=== PATIENT | male | born 1965 | race Caucasian/White ===

== ENCOUNTER 2017-06-04 14:07 | Inpatient (IN) | payer MEDICARE, MEDICAID ==
--- NOTE | 2017-06-04 14:28 | ED Physician Chart ---
Chief Complaint/HPI - Patient Information Date Seen:: 06/04/17 Time Seen:: 14:23 Chief Complaint:: cardiac arrest History of Present Illness:: pt was at dialysis center getting his tx and was noted unresponsive by staff. ems called and found pt in asystole. they started acls protocols and found asystole. he did briefly get pulses back in route at times but arrives in ed asystole. minimal hx available. no known recent troubles prior to arrest. no known recent illness or pain. no family present as of now for further hx. on arrival acls protocols continued and pt received multiple doses of epi and was intubated by myself ...he did return w spontaneous pulses. 2;50pm dw who has now arrived. according to her he was not having and fever or recent illness. no complaints recentyl but he did have pain at l side last nt. he does not complain much in general according to her. 4;50p adds info that pt has recently had skin graft of rt heel ulcer and was believed to be infected so started abx for this 2 days ago. Historian:: EMS Review of Systems - Review of Systems General/Constitutional: Other (pt unresponsive/unobtainable) Past Medical History - Past Medical History Past Medical History: HTN, DM (neuropathy/rf), Dyslipidemia, ESRD (on dialysis) Surgical History: other (dialysis shunt l arm) Medication: Reviewed Family Medical History - Family Member Mother History Unknown: Yes Physical Exam - Physical Examination Other Gen/Cons comments:: unresponsive obese male arrives pulseless w no respiratory effort (is being bag valve mask resp support and chest progressions in progress. color ok. no leg edema no rxn to painfull stimuli. no spontaneous mvts Head: Atraumatic Eyes: Lids, conjuctiva normal, PERRL, EOMI Other Eyes comments:: pinpoint pupils Skin: Nl inspection, No rash, No skin lesions, No ecchymosis, Well hydrated, No lymphadenopathy ENMT: External ears, nose nl, Nasal exam nl, Lips, teeth, gums nl Neck: Nontender, Full ROM w/o pain, No JVD, No nuchal rigidity, No bruit, No mass, No stridor Respiratory: Clear to Auscultation, No Wheeze/Rhonchi/Rales Cardio Vascular: RRR, No murmur, gallop, rubs, NL S1 S2 GI: No tenderness/rebounding/guarding, No organomegaly, No hernia, Normal BS's, Nondistended, No mass/bruits, No McBurney tenderness : No CVA tenderness Extremities: No tenderness or effusion, Full ROM, normal strength in all extremities, No edema, Normal digits & nails Other Extremities comments:: dialysis access shunt left internal bicep..no obv hematoma or infection rt heel has a 1 inch ulcer deep w malodorous but no discharge nor surrounding redness. Other Neuro/Psych comments:: pt unresponsive. nonverbal no rxn to painfull stimuli. no spontaneous mvts Misc: normal gait, Normal back, No paraspinal tenderness Other:: no sign of trauma. Labs/Radiology/EKG Results - Lab Results Results: Laboratory Tests 06/04/17 06/04/17 06/04/17 16:37 16:37 16:37 WBC 18.7 H RBC 3.58 L Hgb 11.7 L Hct 35.2 L MCV 98.2 MCH 32.7 H MCHC Differential 33.2 RDW 14.1 Plt Count 168 MPV 7.4 PT INR PTT (Actin FS) Sodium 130 L Potassium 6.8 H* Chloride 100 Carbon Dioxide 21.6 Anion Gap 15.2 BUN 54 H Creatinine 9.5 H* Est GFR ( Amer) 7.5 Est GFR (Non-Af Amer) 6.2 BUN/Creatinine Ratio 5.7 Glucose 271 H POC Glucose Whole Bld Lactic Acid 2.05 H* Calcium 8.0 L Total Bilirubin 0.8 AST 351 H ALT 321 H Alkaline Phosphatase 104 Troponin I B-Natriuretic Peptide Total Protein 7.6 Albumin 3.7 L Globulin 3.9 Albumin/Globulin Ratio 1.0 06/04/17 06/04/17 06/04/17 16:37 16:37 16:46 WBC RBC Hgb Hct MCV MCH MCHC Differential RDW Plt Count MPV PT 13.7 H INR 1.30 PTT (Actin FS) 45.0 H Sodium Potassium Chloride Carbon Dioxide Anion Gap BUN Creatinine Est GFR ( Amer) Est GFR (Non-Af Amer) BUN/Creatinine Ratio Glucose POC Glucose 230 H Whole Bld Lactic Acid Calcium Total Bilirubin AST ALT Alkaline Phosphatase Troponin I 0.18 H* B-Natriuretic Peptide 183.0 H Total Protein Albumin Globulin Albumin/Globulin Ratio - Radiology Results Results: cxr nad, ett ok 1 cm above cong cxr (no 2) ett ok. rt scl line in place in svc ok per rad prob chf ( appears mild if any to me) - EKG Interpretations EKG Time:: 15:15 Rate & Rhythm: nsr 83 [place]: 14 Intervals: minor st depression v3-6 Assessment - Assessment Critical Care Time: 120 Excludes all billable procedures: Yes This condition life threatening/high prob of deterioration: Yes Assessment/Comments:: PROCEDURE ACLS protocol for cardiac arrest pt arrived in asystole. acls protocols enacting. epi 1mg iv 2x. h2co3 iv x1. iv fluid infusing. PROCEDURE : INTUBATION pt intubated by me...1st attempt was w 7.0 ett and mac 4 blade but was unable to place tube due to large tongue and muscle tone in jaw. suctioned pt....no aspirate seens . bag valve cont and 2nd attempt at intubation minutes later w glidescope was successful w good color change and good bilat bs and no bs over abd, cxr ordred. (pt had regained pulses by this time from medical intervention ) no defibrilation. pt has sinus tach on monitor and tolerating intubation at this time. we have not seen any spontaneous movements - Procedures Procedures:: procedure RT scl line plan was for Dr Allen to do this procedure but pt became unstable w bp drop to 80s systolic. betadyne prep. streile drapes and procedures/gowns/gloves/mask etc. lido 1pct 3 ml local. sev attempts to get scl line on left. got flash but unable to pass wire. calls to Dr Allen placed simultaneously to alert him to change in condition. Dr Allen arrived and was able to get sclline placed. ports flushed. cxr after confirmed line in place correct w tip in svc. ED Septic Shock - . Is Septic Shock (SBP<90, OR Lactate>4 mmol\L) present?: No - <6hrs of presentation: Assessment of Lungs: Lung CTA bilateral Assessment of Heart: RRR EKG Interpretation: NSR, ST depression Capillary refill evaluation: Other (cool in hands feet) Skin Exam: Diaphoretic Comment: pt could be septic...it is currently unclear but possible. suspect this will become clear in time. am covering w abx because of rt foot ulcer and overall condition. - Time of Reassessment Time of Reassessment: 17:09 Reassessment (Disposition) - Reassessment Reassessment:: giving abx for heel ulver...using levaquin bc pt is a DM pt and smell and etc suspicious for pseudomonas. known renal pt but first dose levaquin at reg str should be ok...subsequent doses may need reduced dose but need to get tx started bc of pt extremis recently dont want delay. called Dr Piedra 3x over 1;15 min no answer...call to Dr Latham at 602p -dw Dr Diaz says admit to icu to Dr Piedra and he willcontact Dr Downing so he gives orders soon. consults to Maria Del Rosario Agee (cardiac) , Roge (Renal )and Dr Gonzales (neuro) .... Reassessment Condition:: Improved - Diagnosis Diagnosis:: 1 cardiac arrest / asystole 2 s/p acls resuscitation 3 renal failure - dialysis pt 4 infected ulcer right heel 5 r/o sepsis - Patient Disposition Condition at Disposition:: Critical
--- NOTE | 2017-06-04 14:55 | Diagnostic Imaging Report ---
CHEST X-RAY: AP view INDICATION: Intubation COMPARISON: None FINDINGS: ET tube is seen with tip 1.8 cm above the [place]. Minimal congestive changes are seen with suboptimal lung bones. No focal consolidation or effusions. Cardiomegaly is noted. The osseous structures are intact. IMPRESSION: ET tube with tip 1.8 cm above the [place]. Minimal congestive changes with no focal consolidation identified Cardiomegaly.
[2017-06-04] MEDS ORDERED: Sodium Chloride 0.9% 500 ML IV ONE (16:30)
[2017-06-04 16:49] LABS: HEMATOCRIT 35.2 % (39.0-49.0); HEMOGLOBIN 11.7 gm/dL (13.2-17.3); MEAN CELL VOLUME 98.2 fl (80-99); MEAN CORPUSCULAR HEMOGLOBIN 32.7 pg (26.0-30.0); MEAN CORPUSCULAR HGB CONC 33.2 pg (28.0-36.0); MEAN PLATELET VOLUME 7.4 fl; PLATELET COUNT 168 Th/cmm (150-400); RED BLOOD COUNT 3.58 Mil/cmm (4.30-5.70); RED CELL DISTRIBUTION WIDTH 14.1 % (11.5-20.0)
[2017-06-04] MEDS ORDERED: ceFAZolin 2 GM in Sodium Chloride 0.9% 100 ML IV ONE (16:56)
[2017-06-04] MEDS ORDERED: Levofloxacin 500mg/100mL 500 MG/100 ML BAG IV ONE ×2 (16:58→18:09)
[2017-06-04 17:01] LABS: WHITE BLOOD COUNT 18.7 Th/cmm (4.8-10.8)
[2017-06-04 17:04] LABS: INR 1.3 (0.5-1.4); PROTHROMBIN TIME (TEST) 13.7 SECONDS (9.5-11.5)
[2017-06-04 17:07] LABS: ANION GAP 15.2 (7.0-16.0); BILIRUBIN,TOTAL 0.8 mg/dL (0.3-1.0); BUN/CREATININE RATIO 5.7; CARBON DIOXIDE 21.6 mEq/L (21.0-31.0)
[2017-06-04 17:15] LABS: TROP I 0.18 ng/mL (0.01-0.05)
[2017-06-04 17:18] LABS: POTASSIUM SERUM 6.8 mEq/L (3.5-5.1)
[2017-06-04 17:19] LABS: CREATININE - SERUM 9.5 mg/dL (0.7-1.3)
[2017-06-04 17:42] LABS: BAND NEUTROPHILE 6 % (0-10); BASOPHIL 0 % (0-3); EOSINOPHIL 0 % (0-5); NEUTROPHILS 83 % (40-80); PLATELET ESTIMATE ADEQUATE (NORMAL); PLATELET MORPHOLOGY NORMAL (NORMAL); TOTAL CELLS COUNTED 100
--- NOTE | 2017-06-04 18:27 | Operative Report ---
DATE OF SURGERY: 06/04/2017 PREOPERATIVE DIAGNOSES: 1. Cardiac arrest. 2. End-stage renal disease, on hemodialysis. POSTOPERATIVE DIAGNOSES: 1. Cardiac arrest. 2. End-stage renal disease, on hemodialysis. OPERATION DONE: Insertion of central line right subclavian vein under ultrasound guidance. DESCRIPTION OF PROCEDURE: The patient had been tried on multiple times by the ER physician unsuccessfully puncture, the vein was identified and the guidewire was inserted, the dilator and then the triple lumen catheter. It was anchored to the skin with 3-0 silk. Portable chest x-ray will be ordered. JOB# [id number]
[2017-06-04] MEDS ORDERED: Sodium Chloride 0.9% 1,000 ML IV SCH (18:38)
--- NOTE | 2017-06-04 19:36 | Consultation ---
DATE OF CONSULTATION: 06/04/2017 REFERRING PHYSICIAN: Dr. Orourke. REASON FOR CONSULTATION: No IV access. Thank you for referring this patient to me. HISTORY OF PRESENT ILLNESS: This is a 51-year-old dialysis patient who apparently coded and was without cardiac action for about 20 minutes. An attempt was made ____ by the ER physician and was started on IV, but this was impossible. Thus, I was called in for a central line. The patient is nonresponsive. He is on a respirator. PLAN: We will insert central line under ultrasound guidance. Thank you Dr. Casillas. JOB# [id number]
[2017-06-04] MEDS ORDERED: Acetaminophen 500 MG TAB NG PRN (22:27)
[2017-06-04] MEDS ORDERED: Morphine Sulfate 2 mg/mL 1mL Syr IVP PRN (22:29)
[2017-06-04] MEDS ORDERED: Piperacillin Sodium/Tazobact 2.25 gm Vial IV ONE (22:41)
[2017-06-04 23:14] LABS: ALLEN TEST yes; BE(B) -2.7 mEq/L (-3.0-3.0); FIO2 30; HCO3 22.8 mEq/L (20.0-26.0); MECH RATE 12; MECH VT 550; pH 7.36 (7.35-7.45)
[2017-06-04 23:16] LABS: URINE BILIRUBIN NEGATIVE (NEGATIVE); URINE BLOOD MODERATE (NEGATIVE); URINE GLUCOSE (UA) 100 mg/dL (NEGATIVE); URINE KETONE NEGATIVE (NEGATIVE); URINE PH 6.5 (4.6 - 8.0); URINE PROTEIN 100 mg/dL (NEGATIVE); URINE UROBILINOGEN 0.2 E.U./dL (0.2 - 1.0)
[2017-06-04 23:18] LABS: URINE COLOR YELLOW
[2017-06-04 23:21] LABS: URINE AMORPHOUS SEDIMENT FEW URATES (NONE SEEN); URINE BACTERIA MODERATE /hpf (NONE SEEN); URINE EPITHELIAL CELLS MODERATE /lpf (FEW); URINE SPERM FEW /hpf (NONE SEEN)
[2017-06-05] MEDS: INSULIN ASPART SLIDING SCALE 100 UNITS/ML UNIT SUBQ SCH ×4 (00:14→18:22)
[2017-06-05] MEDS ORDERED: Sodium Chloride 0.9% 1,000 ML IV SCH ×2 (01:30→08:27)
[2017-06-05] MEDS ORDERED: Norepinephrine 4 mg/4mL Vial IV ONE ×2 (01:40→01:49)
[2017-06-05 05:39] LABS: HEMOGLOBIN 10.6 gm/dL (13.2-17.3); MEAN CELL VOLUME 96.6 fl (80-99); MEAN CORPUSCULAR HEMOGLOBIN 33.2 pg (26.0-30.0); MEAN CORPUSCULAR HGB CONC 34.4 pg (28.0-36.0); MEAN PLATELET VOLUME 7.7 fl; PLATELET COUNT 160 Th/cmm (150-400); RED CELL DISTRIBUTION WIDTH 14.3 % (11.5-20.0)
[2017-06-05 05:45] LABS: WHITE BLOOD COUNT 13.9 Th/cmm (4.8-10.8)
[2017-06-05 05:46] LABS: HEMATOCRIT 30.9 % (39.0-49.0)
[2017-06-05 05:59] LABS: ALB/GLOB RATIO 0.9 (1.0-1.8); ANION GAP 15.5 (7.0-16.0); BILIRUBIN,TOTAL 0.6 mg/dL (0.3-1.0); BUN/CREATININE RATIO 6.1; CALCIUM SERUM 7.5 mg/dL (8.6-10.3); CARBON DIOXIDE 21.2 mEq/L (21.0-31.0); MAGNESIUM 1.9 mg/dL (1.9-2.7); POTASSIUM SERUM 5.7 mEq/L (3.5-5.1)
[2017-06-05 06:01] VITALS: BP 145/78
[2017-06-05 06:04] LABS: CREATININE - SERUM 10.1 mg/dL (0.7-1.3)
[2017-06-05 07:18] LABS: BAND NEUTROPHILE 3 % (0-10); NEUTROPHILS 77 % (40-80); PLATELET ESTIMATE ADEQUATE (NORMAL); PLATELET MORPHOLOGY NORMAL (NORMAL); TOTAL CELLS COUNTED 100
--- NOTE | 2017-06-05 07:58 | Diagnostic Imaging Report ---
CHEST X-RAY: AP view INDICATION: Right subclavian line placement COMPARISON: Chest x-ray 06/04/2017 FINDINGS: Endotracheal tube is seen with tip 3.6 cm above the [place]. Right subclavian line is seen with tip in the cavoatrial junction. Low lung volumes are seen with congestive changes and small effusions. No evidence of pneumothorax. Cardiomegaly is noted. IMPRESSION: Interval right subclavian line placement with tip in the cavoatrial junction. Low lung volumes and mild congestive changes and small effusions. Cardiomegaly.
--- NOTE | 2017-06-05 08:29 | Diagnostic Imaging Report ---
CHEST X-RAY: AP view INDICATION: pain COMPARISON: Chest x-ray 06/04/2017 FINDINGS: ET tube is seen with tip 8 mm above the cong. Suggest mild pullback. NG tube is visualized the stomach. Right subclavian line is stable. Low lung volumes are seen with mild congestive changes small left effusion. Cardiomegaly is noted. IMPRESSION: ET tube with tip 8 mm above the cong. Suggest mild pullback. Lower lung volume with mild congestive changes and small left effusion. Pneumonia of the left lung base cannot be excluded. Results were administered to the referring team on 06/05/2017 at 8:27 AM.
[2017-06-05] MEDS: Chlorhexidine Gluconate 0.12% 15mL Mouthwash MM SCH ×2 (08:36→16:39)
[2017-06-05] MEDS ORDERED: Sevelamer Carnonate 800 mg Tab PO SCH (09:00)
[2017-06-05] MEDS ORDERED: Chlorhexidine Gluconate 0.12% 480mL Bottle MM SCH (09:00)
[2017-06-05 09:05] LABS: ABG SOURCE Arterial; ALLEN TEST Positive; BE(B) -2.2 mEq/L (-3.0-3.0); FIO2 30; HCO3 23.1 mEq/L (20.0-26.0); MECH RATE 12; MECH VT 550; pH 7.34 (7.35-7.45)
--- NOTE | 2017-06-05 09:34 | Consultation ---
DATE OF CONSULTATION: 06/05/2017 HISTORY OF PRESENT ILLNESS: The patient is a 51-year-old. The patient has cardiopulmonary arrest. The patient is intubated on the vent. No seizure. The patient has no response. PAST MEDICAL HISTORY: End-stage renal disease. The patient has dialysis access on the left. The patient has diabetes. REVIEW OF SYSTEMS: Not obtainable. PHYSICAL EXAMINATION: VITAL SIGNS: Temperature 98.2, blood pressure 112/50, pulse is around 80. EXTREMITIES: The patient's left is cyanotic and cold. Suggest urgent Vascular Surgery consult. HEART: The patient has normal heart sounds. LUNGS: Clear. ABDOMEN: Soft. NEUROLOGIC: The patient is on the vent. I do not get any response to pain. Pupils about 4-5 mm, no reaction. I do not get a corneal reflex, eyes in the midline. No movement with dolls. Motor: No response to stimulation. Reflex is absent in upper and lower extremity. ASSESSMENT: 1. Encephalopathy, anoxic. 2. Cardiopulmonary arrest. 3. End-stage renal disease, the patient is on dialysis. 4. Infected ulcer, right heel. 5. Diabetes. PLAN: CT scan of the head. The patient has cyanosis left hand, suggest Vascular Surgery. JOB# [id number]
[2017-06-05] MEDS ORDERED: VTE Chemical Prophylaxis Screen/Admission MC PRN (09:44)
--- NOTE | 2017-06-05 10:45 | General Progress Note ---
Subjective - Review of Systems Service Date: 06/05/17 Events since last encounter: has dusky fingers left hand doppler ordered Objective - Results Result Diagrams: 06/05/17 05:15 06/05/17 05:15 Recent Labs: Laboratory Last Values WBC 13.9 Th/cmm (4.8-10.8) H D 06/05/17 05:15 RBC 3.20 Mil/cmm (4.30-5.70) L 06/05/17 05:15 Hgb 10.6 gm/dL (13.2-17.3) L 06/05/17 05:15 Hct 30.9 % (39.0-49.0) L D 06/05/17 05:15 MCV 96.6 fl (80-99) 06/05/17 05:15 MCH 33.2 pg (26.0-30.0) H 06/05/17 05:15 MCHC Differential 34.4 pg (28.0-36.0) 06/05/17 05:15 RDW 14.3 % (11.5-20.0) 06/05/17 05:15 Plt Count 160 Th/cmm (150-400) 06/05/17 05:15 MPV 7.7 fl 06/05/17 05:15 Band Neutrophils % 3 % (0-10) 06/05/17 05:15 Neutrophils (Manual) 77 % (40-80) 06/05/17 05:15 Lymphocytes 8 % (20-50) L 06/05/17 05:15 Monocytes 11 % (2-10) H 06/05/17 05:15 Eosinophils 0 % (0-5) 06/04/17 16:37 Basophils 0 % (0-3) 06/04/17 16:37 Atypical Lymphocytes 1 % 06/05/17 05:15 Platelet Estimate ADEQUATE (NORMAL) 06/05/17 05:15 Platelet Morphology NORMAL (NORMAL) 06/05/17 05:15 RBC Morph Micro Appear NORMAL (NORMAL) 06/05/17 05:15 PT 13.7 SECONDS (9.5-11.5) H 06/04/17 16:37 INR 1.30 (0.5-1.4) 06/04/17 16:37 PTT (Actin FS) 45.0 SECONDS (26.0-38.0) H 06/04/17 16:37 Specimen Source Arterial 06/05/17 08:54 Sample Site Right Radial 06/05/17 08:54 pH 7.34 (7.35-7.45) L 06/05/17 08:54 pCO2 44.0 mmHg (35.0-45.0) 06/05/17 08:54 pO2 72.0 mmHg (80.0-100.0) L 06/05/17 08:54 HCO3 23.1 mEq/L (20.0-26.0) 06/05/17 08:54 Base Excess -2.2 mEq/L (-3.0-3.0) 06/05/17 08:54 O2 Saturation 93.0 % (92.0-100.0) 06/05/17 08:54 Connor Test Positive 06/05/17 08:54 Vent Rate 12 06/05/17 08:54 Inspired O2 30 06/05/17 08:54 Tidal Volume 550 06/05/17 08:54 PEEP NA 06/05/17 08:54 Pressure (ins/psv/peep) NA 06/05/17 08:54 Critical Value LZHANG 06/05/17 08:54 Sodium 136 mEq/L (136-145) 06/05/17 05:15 Potassium 5.7 mEq/L (3.5-5.1) H 06/05/17 05:15 Chloride 105 mEq/L (98-107) 06/05/17 05:15 Carbon Dioxide 21.2 mEq/L (21.0-31.0) 06/05/17 05:15 Anion Gap 15.5 (7.0-16.0) 06/05/17 05:15 BUN 62 mg/dL (7-25) H 06/05/17 05:15 Creatinine 10.1 mg/dL (0.7-1.3) H* 06/05/17 05:15 Est GFR ( Amer) 7.0 ml/min (>90) 06/05/17 05:15 Est GFR (Non-Af Amer) 5.8 ml/min 06/05/17 05:15 BUN/Creatinine Ratio 6.1 06/05/17 05:15 Glucose 194 mg/dL (70-105) H 06/05/17 05:15 POC Glucose 208 MG/DL (70 - 105) H 06/05/17 05:08 Hemoglobin A1c % 6.3 % (4.0-6.0) H 06/04/17 16:37 Whole Bld Lactic Acid 0.95 mmol/L (0.60-1.99) 06/05/17 05:15 Calcium 7.5 mg/dL (8.6-10.3) L 06/05/17 05:15 Magnesium 1.9 mg/dL (1.9-2.7) 06/05/17 05:15 Total Bilirubin 0.6 mg/dL (0.3-1.0) 06/05/17 05:15 AST 162 U/L (13-39) H 06/05/17 05:15 ALT 217 U/L (7-52) H 06/05/17 05:15 Alkaline Phosphatase 83 U/L (34-104) 06/05/17 05:15 Troponin I 0.18 ng/mL (0.01-0.05) H* 06/04/17 16:37 B-Natriuretic Peptide 183.0 pg/mL (5.0-100.0) H 06/04/17 16:37 Total Protein 6.9 gm/dL (6.0-8.3) 06/05/17 05:15 Albumin 3.3 gm/dL (4.2-5.5) L 06/05/17 05:15 Globulin 3.6 gm/dL 06/05/17 05:15 Albumin/Globulin Ratio 0.9 (1.0-1.8) L 06/05/17 05:15 Urine Source [place] 06/04/17 23:00 Urine Color YELLOW 06/04/17 23:00 Urine Clarity SLIGHT CLOUDY (CLEAR) 06/04/17 23:00 Urine pH 6.5 (4.6 - 8.0) 06/04/17 23:00 Ur Specific [place] 1.020 (1.005-1.030) 06/04/17 23:00 Urine Protein 100 mg/dL (NEGATIVE) H 06/04/17 23:00 Urine Glucose (UA) 100 mg/dL (NEGATIVE) H 06/04/17 23:00 Urine Ketones NEGATIVE mg/dL (NEGATIVE) 06/04/17 23:00 Urine Blood MODERATE (NEGATIVE) H 06/04/17 23:00 Urine Nitrate NEGATIVE (NEGATIVE) 06/04/17 23:00 Urine Bilirubin NEGATIVE (NEGATIVE) 06/04/17 23:00 Urine Urobilinogen 0.2 E.U./dL (0.2 - 1.0) 06/04/17 23:00 Ur Leukocyte Esterase NEGATIVE (NEGATIVE) 06/04/17 23:00 Urine RBC 10-25 /hpf (0-5) H 06/04/17 23:00 Urine WBC 2-5 /hpf (0-5) H 06/04/17 23:00 Ur Epithelial Cells MODERATE /lpf (FEW) 06/04/17 23:00 Amorphous Sediment FEW URATES (NONE SEEN) 06/04/17 23:00 Urine Bacteria MODERATE /hpf (NONE SEEN) 06/04/17 23:00 Urine Sperm FEW /hpf (NONE SEEN) 06/04/17 23:00 Random Vancomycin 16.5 ug/mL (5.0-40.0) 06/05/17 05:15 - Physical Exam Vitals and I&O: Vital Signs Temp 99.8 F 06/05/17 08:00 Pulse 81 06/05/17 08:35 Resp 12 06/05/17 08:00 BP 113/43 06/05/17 08:35 Pulse Ox 96 06/05/17 08:00 Intake & Output 06/04/17 06/05/17 06/05/17 18:59 06:59 18:59 Intake Total 222.5 106.000 Output Total 60 Balance 162.5 106.000 Weight (lbs) 121.971 kg 125.69 kg Intake: Intake, IV Amount 72.5 106.000 Norepinephrine 8 mg In 22.5 56.000 Dextrose 5% 242 ml @ 5 MCG/MIN 9.37 mls/hr IV TITR PRN Rx#:[id number] Piperacillin Sodium/ 50 50 Tazobact 2.25 gm In Sodium Chloride 0.9% 50 ml @ 100 mls/hr IV Q6HR JOSEMANUEL Rx#:[id number] Oral 0 Other 150 Output: Urine 60 Other: # Bowel Movements 0 Active Medications: Current Medications Acetaminophen (Tylenol Extra Strength) 1,000 mg NG Q8H PRN PRN Reason: Fever > 101 Stop: 08/03/17 22:26 Amlodipine Besylate (Norvasc) 10 mg PO DAILY [facility] Stop: 08/04/17 08:59 Last Admin: 06/05/17 08:35 Dose: Not Given Aspirin (Ecotrin) 81 mg PO DAILY [facility] Stop: 08/04/17 08:59 Last Admin: 06/05/17 08:40 Dose: 81 mg Carvedilol (Coreg) 6.25 mg PO BID [facility] Stop: 08/04/17 08:59 Last Admin: 06/05/17 08:35 Dose: 6.25 mg Chlorhexidine Gluconate (Peridex) 15 ml MM BID [facility] Stop: 08/04/17 08:59 Last Admin: 06/05/17 08:36 Dose: 15 ml Enalaprilat (Vasotec) 1.25 mg IVP Q6HR PRN PRN Reason: For SBP above 150 mmhg Stop: 08/03/17 19:59 Hydralazine HCl (Apresoline 20 Mg/Ml) 5 mg IV Q4HR PRN PRN Reason: sbpmore than 160 mmhg Stop: 08/03/17 22:39 Piperacillin Sod/Tazobactam (Sod 2.25 gm/ Sodium Chloride) 50 mls @ 100 mls/hr IV Q6HR [facility] Stop: 08/04/17 00:00 Last Infusion: 06/05/17 08:36 Dose: Infused Norepinephrine Bitartrate 8 mg (/ Dextrose) 250 mls @ 9.37 mls/hr IV TITR PRN; Protocol; 5 MCG/MIN PRN Reason: BP MAINTENANCE (PER PROTOCOL) Stop: 08/04/17 01:33 Last Titration: 06/05/17 10:19 Dose: 4 mcg/min, 7.5 mls/hr Sodium Chloride (Nacl 0.9%) 1,000 mls @ 60 mls/hr IV .[id number] [facility] Stop: 08/04/17 08:26 Last Admin: 06/05/17 08:40 Dose: 60 mls/hr Vancomycin HCl 1.5 gm/ Sodium (Chloride) 500 mls @ 250 mls/hr IV ONCE ONE Stop: 06/05/17 12:59 Insulin Aspart (Novolog Insulin Sliding Scale) 0 units SUBQ Q6HR JOSEMANUEL PRN Reason: Protocol Stop: 08/04/17 00:00 Last Admin: 06/05/17 05:57 Dose: 4 units Lorazepam (Ativan) 1 mg IVP Q4HR PRN; Protocol PRN Reason: moderate anxiety Stop: 08/03/17 22:27 Lorazepam (Ativan) 2 mg IVP Q4HR PRN; Protocol PRN Reason: severe anxiety Stop: 08/03/17 22:29 Miscellaneous (Vancomycin Iv Per Pharmacy) 1 ea PRN PRN PRN Reason: PROTOCOL Stop: 08/03/17 18:38 Miscellaneous (Vte Chemical Prophylaxis Screen/ Admission) 1 ea PRN PRN PRN Reason: PROTOCOL Stop: 08/04/17 09:43 Morphine Sulfate (Morphine) 1 mg IVP Q4HR PRN PRN Reason: moderate-severe pain Stop: 08/03/17 22:28 Sevelamer Carbonate (Renvela) 800 mg PO TID JOSEMANUEL Stop: 08/04/17 08:59 Last Admin: 06/05/17 09:47 Dose: Not Given - Procedures Procedures: Procedures Procedure Code Date HEART/LUNG RESUSCITATION CPR 53803 06/04/17 INSERT EMERGENCY AIRWAY 00923 06/04/17 INSERT TUNNELED CV CATH 02090 06/04/17 INSERTION OF ENDOTRACHEAL AIRWAY INTO TRACHEA, VIA OPENING [id number] 06/04/17 INSERTION OF INFUSION DEV INTO R SUBCLAV VEIN, PERC APPROACH [id number] 06/04/17 PERFORMANCE OF CARDIAC OUTPUT, SINGLE, MANUAL [id number] 06/04/17 RESPIRATORY VENTILATION, LESS THAN 24 CONSECUTIVE HOURS [id number] 06/04/17 VENT MGMT INPAT INIT DAY 01714 06/04/17
[2017-06-05] MEDS ORDERED: Vancomycin HCl 1.5 GM in Sodium Chloride 0.9% 500 ML IV ONE (11:00)
--- NOTE | 2017-06-05 11:06 | History & Physical ---
ADMIT DATE: 06/04/2017 CHIEF COMPLAINT: Unresponsiveness and asystole. HISTORY OF PRESENT ILLNESS: This is a 51-year-old male with history significant for hypertension, diabetes, hyperlipidemia, who is on hemodialysis secondary to end-stage renal disease, who apparently was in his usual state of health until yesterday when he was found unresponsive while getting hemodialysis. He was noted to be pulseless and EMS was activated. The patient was bagged and compressions were done en route to the ER. At the ER, he responded to epinephrine bicarb and IV fluids challenge. He was emergently intubated and was then transferred to the ICU for further management and care. Pertinent findings include a white count of 18.7, sodium 130, potassium of 6.8, creatinine 9.5. He also had lactic acid level of 2.18, elevated transaminases and elevated troponin at 0.18. A chest x-ray post-sensation showed minimal congestive changes with no focal consolidation, there is cardiomegaly. A CT of the brain has been ordered, but it has not been done yet. The patient, besides being intubated, has also undergone a central line placement by Surgery. At this time, the patient is comfortable, but is not responding to verbal stimuli. PAST MEDICAL HISTORY: As noted above. PAST SURGICAL HISTORY: Includes hemodialysis access unknown as to how long ago it was done per notes. Pertinent notes, he has had also a history of MRSA bacteremia and lower lobe pneumonia. FAMILY HISTORY: Unknown, but likely noncontributory. SOCIAL HISTORY: Unknown. ALLERGIES: NKDA. OUTPATIENT MEDICATIONS: Ferric citrate 210 t.i.d., gabapentin 300 mg b.i.d., glipizide 10 mg b.i.d., Levaquin 250 every day, amlodipine 5 q.12, aspirin 81 every day, Coreg 6.25 b.i.d. and Renvela 800 mg t.i.d. REVIEW OF SYSTEMS: Could not be done given the patient's condition. PHYSICAL EXAMINATION: VITAL SIGNS: Temperature 99.8, pulse 80, respirations 12-18, blood pressure 109/53, satting 96%. GENERAL: The patient is currently intubated, ET tube is in place. HEAD AND NECK: Atraumatic, normocephalic. His pupils are sluggish. NECK: There is no JVD or LAD. CARDIOVASCULAR: Regular rate with distant sounds. LUNGS: Decreased breath sounds, but clear to auscultation, otherwise. ABDOMEN: Soft, supple, distended with hypoactive bowel sounds and there is trace edema in lower extremities. NEUROLOGIC: Cannot be done given the patient's condition. LABORATORY DATA: On admission, white count 18.7, H and H 11/35 and platelet count of 168. INR 1.3, blood gas, this was done on tidal volume of 550 30% FiO2, backup rate of 12, pH 7.36, pCO2 40, pO2 of 90. White count of 22.8. Sodium 130, potassium 6.8, chloride 100, CO2 of 21, BUN 54, creatinine 9.5, glucose 271, hemoglobin A1c is 6.3, lactic acid 2.18, calcium 8.0, AST of 351, ALT 321, alkaline phosphatase of 104. Troponins 0.18. BNP 183, total protein 7.6, albumin 3.7. UA shows positive for protein and glucose, moderate blood, negative for nitrite and negative for leukocyte esterase, there are 10-25 rbc's and 2-5 wbc's. There is moderate urine bacteria. DIAGNOSTICS: Chest x-ray interval right subclavian line placement at the able atrial junction. There are low lung volumes and mild congestive changes and small effusions, cardiomegaly. EKG shows sinus rhythm at the rate of 83. There is no noticeable ST elevations or depressions. There are no Q waves noticed. ASSESSMENT: 1. Cardiopulmonary arrest/asystole. Differential could be cardiac arrhythmia/ ACS vs neurological event (cva/tia) vs. 2ry to sepsis. 2. Sepsis/shock-etiol include pneumonia (including aspiration) vs UTI. 3. Acute respiratory failure requiring intubation. 4. Leukocytosis. 5. Elevated troponin level. R/O ACS. 6. Elevated lactic acid level. 7. History of end-stage renal disease, on hemodialysis. 8. Hyponatremia. 9. Transaminitis, which could be secondary to a passive congestion. 10. History of type 2 diabetes. 11. Hx of essential hypertension. PLAN: The patient has been admitted to ICU and has been placed on broad spectrum antibiotics, namely Zosyn and vancomycin and will add also Flagyl for aspiration coverage. He has been started on Levophed at a low rate and was given IV fluids overnight. We will continue to monitor his troponins and I will ask for a 2D echo as well as a CT scan of the abdomen and pelvis. A CT of the head is also pending. Nephrology has been asked for hemodialysis orders, and Pulmonary Critical Care and Neurology eval also have been asked for further management and care. JOB# [id number] ANGEL
--- NOTE | 2017-06-05 11:31 | Diagnostic Imaging Report ---
Left upper extremity arterial Doppler study HISTORY: Provided history of shunt, rule out clot COMPARISON: None Technique: Longitudinal and transverse sonographic images of the left upper extremity arteries were obtained with doppler analysis. FINDINGS: There is also triphasic flow within the left subclavian axillary brachial radial and ulnar arteries. No evidence of occlusion. There is suggestion of mild generalized atherosclerotic vascular disease. IMPRESSION: Patient's shunt was not well visualized. Please correlate with clinical findings. Mild atherosclerotic vascular disease suspected. No evidence of significant focal vessel narrowing.
--- NOTE | 2017-06-05 11:31 | Consultation ---
Consult Note - Consult Note Service Date: 06/05/17 Referring Physician: Rose Piedra Consult Note: PHYSICIAN Consultation Note: Date of Admission: 06/04/17 Purpose of Consultation: ESRD Chief Complaint: CARDIOPULMONARY ARREST History of Present Illness: 51 year old male PMH DM HTN ESRD Patient was at HD center yesterday. He complaint to RN that he did not feel well. The RN stopped the ultrafilteration. Shortly he appeared to be snoring. The RN felt low BP and faint heart rate. He soon became unresponsive and 911 was called. Patient is intubated and does not respond to questions Past Medical History: ESRD HTN DM PSH HD catheter , HD AVF Diagnoses TYPE 2 DIABETES MELLITUS W DIABETIC CHRONIC KIDNEY DISEASE (06/04/17) HYPERLIPIDEMIA, UNSPECIFIED (06/04/17) HYP CHR KIDNEY DISEASE W STAGE 5 CHR KIDNEY DISEASE OR ESRD (06/04/17) CARDIAC ARREST, CAUSE UNSPECIFIED (06/04/17) NON-PRS CHR ULCER OF RIGHT HEEL AND MIDFOOT W UNSP SEVERT (06/04/17) END STAGE RENAL DISEASE (06/04/17) DEPENDENCE ON RENAL DIALYSIS (06/04/17) Allergies Allergy/AdvReac Type Severity Reaction Status Date / Time No Known Allergies Allergy Verified 06/04/17 14:38 Vital Signs Temp 99.8 F 06/05/17 08:00 Pulse 81 06/05/17 08:35 Resp 12 06/05/17 08:00 BP 113/43 06/05/17 08:35 Pulse Ox 96 06/05/17 08:00 Intake & Output 06/04/17 06/05/17 06/05/17 18:59 06:59 18:59 Intake Total 222.5 106.000 Output Total 60 Balance 162.5 106.000 Weight (lbs) 121.971 kg 125.69 kg Intake: Intake, IV Amount 72.5 106.000 Norepinephrine 8 mg In 22.5 56.000 Dextrose 5% 242 ml @ 5 MCG/MIN 9.37 mls/hr IV TITR PRN Rx#:[id number] Piperacillin Sodium/ 50 50 Tazobact 2.25 gm In Sodium Chloride 0.9% 50 ml @ 100 mls/hr IV Q6HR JOSEMANUEL Rx#:[id number] Oral 0 Other 150 Output: Urine 60 Other: # Bowel Movements 0 Laboratory Results - last 24 hr 06/04/17 06/04/17 06/04/17 18:39 18:59 23:00 WBC RBC Hgb Hct MCV MCH MCHC Differential RDW Plt Count MPV Band Neutrophils % Neutrophils (Manual) Lymphocytes Monocytes Atypical Lymphocytes Platelet Estimate Platelet Morphology RBC Morph Micro Appear Specimen Source arterial Sample Site rr pH 7.36 pCO2 40.0 pO2 90.0 HCO3 22.8 Base Excess -2.7 O2 Saturation 97.0 Connor Test yes Vent Rate 12 Inspired O2 30 Tidal Volume 550 PEEP n/a Pressure (ins/psv/peep) n/a Critical Value abroedel cryptanalyst Sodium Potassium Chloride Carbon Dioxide Anion Gap BUN Creatinine Est GFR ( Amer) Est GFR (Non-Af Amer) BUN/Creatinine Ratio Glucose POC Glucose Whole Bld Lactic Acid 2.18 H* Calcium Magnesium Total Bilirubin AST ALT Alkaline Phosphatase Total Protein Albumin Globulin Albumin/Globulin Ratio Urine Source [place] Urine Color YELLOW Urine Clarity SLIGHT CLOUDY Urine pH 6.5 Ur Specific [place] 1.020 Urine Protein 100 H Urine Glucose (UA) 100 H Urine Ketones NEGATIVE Urine Blood MODERATE H Urine Nitrate NEGATIVE Urine Bilirubin NEGATIVE Urine Urobilinogen 0.2 Ur Leukocyte Esterase NEGATIVE Urine RBC 10-25 H Urine WBC 2-5 H Ur Epithelial Cells MODERATE Amorphous Sediment FEW URATES Urine Bacteria MODERATE Urine Sperm FEW Random Vancomycin 06/05/17 06/05/17 06/05/17 00:12 05:08 05:15 WBC 13.9 H D RBC 3.20 L Hgb 10.6 L Hct 30.9 L D MCV 96.6 MCH 33.2 H MCHC Differential 34.4 RDW 14.3 Plt Count 160 MPV 7.7 Band Neutrophils % 3 Neutrophils (Manual) 77 Lymphocytes 8 L Monocytes 11 H Atypical Lymphocytes 1 Platelet Estimate ADEQUATE Platelet Morphology NORMAL RBC Morph Micro Appear NORMAL Specimen Source Sample Site pH pCO2 pO2 HCO3 Base Excess O2 Saturation Connor Test Vent Rate Inspired O2 Tidal Volume PEEP Pressure (ins/psv/peep) Critical Value Sodium Potassium Chloride Carbon Dioxide Anion Gap BUN Creatinine Est GFR ( Amer) Est GFR (Non-Af Amer) BUN/Creatinine Ratio Glucose POC Glucose 191 H 208 H Whole Bld Lactic Acid Calcium Magnesium Total Bilirubin AST ALT Alkaline Phosphatase Total Protein Albumin Globulin Albumin/Globulin Ratio Urine Source Urine Color Urine Clarity Urine pH Ur Specific [place] Urine Protein Urine Glucose (UA) Urine Ketones Urine Blood Urine Nitrate Urine Bilirubin Urine Urobilinogen Ur Leukocyte Esterase Urine RBC Urine WBC Ur Epithelial Cells Amorphous Sediment Urine Bacteria Urine Sperm Random Vancomycin 06/05/17 06/05/17 06/05/17 05:15 05:15 05:15 WBC RBC Hgb Hct MCV MCH MCHC Differential RDW Plt Count MPV Band Neutrophils % Neutrophils (Manual) Lymphocytes Monocytes Atypical Lymphocytes Platelet Estimate Platelet Morphology RBC Morph Micro Appear Specimen Source Sample Site pH pCO2 pO2 HCO3 Base Excess O2 Saturation Connor Test Vent Rate Inspired O2 Tidal Volume PEEP Pressure (ins/psv/peep) Critical Value Sodium 136 Potassium 5.7 H Chloride 105 Carbon Dioxide 21.2 Anion Gap 15.5 BUN 62 H Creatinine 10.1 H* Est GFR ( Amer) 7.0 Est GFR (Non-Af Amer) 5.8 BUN/Creatinine Ratio 6.1 Glucose 194 H POC Glucose Whole Bld Lactic Acid 0.95 Calcium 7.5 L Magnesium 1.9 Total Bilirubin 0.6 AST 162 H ALT 217 H Alkaline Phosphatase 83 Total Protein 6.9 Albumin 3.3 L Globulin 3.6 Albumin/Globulin Ratio 0.9 L Urine Source Urine Color Urine Clarity Urine pH Ur Specific [place] Urine Protein Urine Glucose (UA) Urine Ketones Urine Blood Urine Nitrate Urine Bilirubin Urine Urobilinogen Ur Leukocyte Esterase Urine RBC Urine WBC Ur Epithelial Cells Amorphous Sediment Urine Bacteria Urine Sperm Random Vancomycin 16.5 06/05/17 08:54 WBC RBC Hgb Hct MCV MCH MCHC Differential RDW Plt Count MPV Band Neutrophils % Neutrophils (Manual) Lymphocytes Monocytes Atypical Lymphocytes Platelet Estimate Platelet Morphology RBC Morph Micro Appear Specimen Source Arterial Sample Site Right Radial pH 7.34 L pCO2 44.0 pO2 72.0 L HCO3 23.1 Base Excess -2.2 O2 Saturation 93.0 Connor Test Positive Vent Rate 12 Inspired O2 30 Tidal Volume 550 PEEP NA Pressure (ins/psv/peep) NA Critical Value LZHANG Sodium Potassium Chloride Carbon Dioxide Anion Gap BUN Creatinine Est GFR ( Amer) Est GFR (Non-Af Amer) BUN/Creatinine Ratio Glucose POC Glucose Whole Bld Lactic Acid Calcium Magnesium Total Bilirubin AST ALT Alkaline Phosphatase Total Protein Albumin Globulin Albumin/Globulin Ratio Urine Source Urine Color Urine Clarity Urine pH Ur Specific [place] Urine Protein Urine Glucose (UA) Urine Ketones Urine Blood Urine Nitrate Urine Bilirubin Urine Urobilinogen Ur Leukocyte Esterase Urine RBC Urine WBC Ur Epithelial Cells Amorphous Sediment Urine Bacteria Urine Sperm Random Vancomycin Home Medication Medication Instructions Recorded Type Amlodipine Besylate 5 mg PO Q12H 06/04/17 History Aspirin [Adult Low Dose Aspirin EC] 1 tab PO DAILY 06/04/17 History Carvedilol [Coreg] 1 tab PO BID 06/04/17 History Ferric Citrate [Auryxia] 1 tab PO TID 06/04/17 History Gabapentin [Neurontin] 1 tab PO BID 06/04/17 History Glipizide [Glucotrol] 1 tab PO BID 06/04/17 History Levofloxacin [Levaquin] 1 tab PO DAILY 06/04/17 History Sevelamer Carnonate [Renvela] 1 tab PO TID 06/04/17 History Current Medications Generic Name Dose Route Start Last Admin Trade Name Freq PRN Reason Stop Dose Admin Acetaminophen 1,000 mg 06/04/17 22:27 Tylenol Extra Strength NG 08/03/17 22:26 Q8H PRN Fever > 101 Amlodipine Besylate 10 mg 06/05/17 09:00 06/05/17 08:35 Norvasc PO 08/04/17 08:59 Not Given DAILY JOSEMANUEL Aspirin 81 mg 06/05/17 09:00 06/05/17 08:40 Ecotrin PO 08/04/17 08:59 81 mg DAILY JOSEMANUEL Administration Carvedilol 6.25 mg 06/05/17 09:00 06/05/17 08:35 Coreg PO 08/04/17 08:59 6.25 mg BID JOSEMANUEL Administration Chlorhexidine Gluconate 15 ml 06/05/17 09:00 06/05/17 08:36 Peridex MM 08/04/17 08:59 15 ml BID JOSEMANUEL Administration Enalaprilat 1.25 mg 06/04/17 19:54 Vasotec IVP 08/03/17 19:59 Q6HR PRN For SBP above 150 mmhg Hydralazine HCl 5 mg 06/04/17 22:40 Apresoline 20 Mg/Ml IV 08/03/17 22:39 Q4HR PRN sbpmore than 160 mmhg Piperacillin Sod/Tazobactam 50 mls @ 100 mls/hr 06/05/17 00:00 06/05/17 08:36 Sod 2.25 gm/ Sodium Chloride IV 08/04/17 00:00 Infused Q6HR JOSEMANUEL Infusion Norepinephrine Bitartrate 8 mg 250 mls @ 9.37 mls/hr 06/05/17 01:34 06/05/17 10:19 / Dextrose IV 08/04/17 01:33 4 mcg/min TITR PRN 7.5 mls/hr BP MAINTENANCE (PER PROTOCOL) Titration Protocol 5 MCG/MIN Sodium Chloride 1,000 mls @ 60 mls/hr 06/05/17 08:27 06/05/17 08:40 Nacl 0.9% IV 08/04/17 08:26 60 mls/hr .[id number] JOSEMANUEL Administration Vancomycin HCl 1.5 gm/ Sodium 500 mls @ 250 mls/hr 06/05/17 11:00 Chloride IV 06/05/17 12:59 ONCE ONE Insulin Aspart 0 units 06/05/17 00:00 06/05/17 05:57 Novolog Insulin Sliding Scale SUBQ 08/04/17 00:00 4 units Q6HR JOSEMANUEL Administration Protocol Lorazepam 1 mg 06/04/17 22:28 Ativan IVP 08/03/17 22:27 Q4HR PRN moderate anxiety Protocol Lorazepam 2 mg 06/04/17 22:30 Ativan IVP 08/03/17 22:29 Q4HR PRN severe anxiety Protocol Miscellaneous 1 06/04/17 18:39 Vancomycin Iv Per Pharmacy 08/03/17 18:38 PRN PRN PROTOCOL Miscellaneous 1 06/05/17 09:44 Vte Chemical Prophylaxis Screen/ Admission 08/04/17 09:43 PRN PRN PROTOCOL Morphine Sulfate 1 mg 06/04/17 22:29 Morphine IVP 08/03/17 22:28 Q4HR PRN moderate-severe pain Sevelamer Carbonate 800 mg 06/05/17 09:00 06/05/17 09:47 Renvela PO 08/04/17 08:59 Not Given TID [facility] Review of Systems: A 12 point ROS was reviewed with the pertinent positive and negatives noted in the HPI. Social History Smoking Status Never smoker Drug Use No Alcohol Use No Family Medical History Family Medical History Start: 06/04/17 18: 23 Freq: ONCE Status: Active Document 06/04/17 18:23 SHALINI (Rec: 06/04/17 20:57 SHALINI ARTHUR- [id number]) Family Medical History Father Hx Family Diabetes Yes Mother History Unknown Yes Physical Exam: General: not responding HEENT: KAREY EOMI Cardio: S1 S2 Respiratory: Bilateral rhonchi Abdominal: soft obese Genital/Urinary: deferred Extremities: Plus trace edema Neurological: does not respond to verbal or physical stimuli Assessment: s/p Cardiopulmonary arrest ESRD HTN DM Plan: Patient remains in ICU at this time. Patient isn't intubated. Patient does not respond to any stimuli. At this time patient is being evaluated by earrings fabricator and sap security architect. Patient electrolytes and labs are within normal range. We'll hold off on hemodialysis at this time. Signed, Richard Krueger M.D. 06/05/[id number]
--- NOTE | 2017-06-05 11:43 | Diagnostic Imaging Report ---
Head CT without intravenous contrast Indication: Cardiac arrest Comparison: None Technique: Axial images were obtained from the vertex to the skull base without IV contrast. Coronal reconstructions were made. Total DLP: 674, CTDI37 FINDINGS: Images of the brain obtained without contrast demonstrate left intraparenchymal hemorrhage along the left temporal lobe measuring up to 2.5 cm with surrounding low attenuation and edema including edema involving the bilateral occipital lobe regions. There is also suggestion of generalized cerebral edema. Small amount of hemorrhage is seen layering on the falx and tentorium. No midline shift. There is opacification of the nasal pharyngeal region. The hypoplastic left maxillary sinus is noted. IMPRESSION: 2.5 cm left temporal intraparenchymal hemorrhage with surrounding low-density edema within the left temporal and left occipital lobe. There is also suggestion of additional cerebral edema throughout the right occipital lobe and probable additional generalized cerebral edema. Clinical correlation and follow-up is recommended. No midline shift. Mild hemorrhage seen layering along the falx and tentorium. Vertical results were relayed to the referring team on 06/05/2017 at 11:10 AM.
--- NOTE | 2017-06-05 11:43 | Diagnostic Imaging Report ---
CT abdomen and pelvis without intravenous contrast Indication: Distention Comparison: None, Technique: Axial images were obtained from the lung bases to the bilateral proximal femurs without IV contrast. Coronal reconstructions were made. total DLP: 1052, CTDI 18.7 FINDINGS: Bibasal infiltrates and consolidative changes are noted. NG tube is seen terminating within the stomach abutting the greater curvature of the stomach.. Evaluation of the solid organs is limited due to lack of IV contrast. No focal hepatic lesions. Mildly distended gallbladder seen with no evidence of radiopaque gallstones. No focal splenic or pancreatic lesions. No focal adrenal lesions. Nonspecific bilateral perinephric inflammatory changes are noted. Rojas catheter seen within collapsed urinary bladder. Diverticulosis is noted without evidence of diverticulitis. No evidence of small bowel obstruction. No evidence of appendicitis. No evidence of free air or free fluid. Small bilateral fat-containing hernias are noted. Mild atherosclerotic vascular disease is noted. Mild degenerative changes of the spine are noted. IMPRESSION: No evidence of small bowel obstruction. Diverticulosis without evidence of diverticulitis. NG tube within the stomach abutting the greater curvature wall of the stomach. Consider slight pullback so the NG tube is not apposed against the wall of the stomach. Mildly distended gallbladder. No evidence of radiopaque gallstones. Nonspecific bilateral perinephric inflammatory changes. Bibasal infiltrates and small bilateral effusions.
--- NOTE | 2017-06-05 14:27 | Cardiology ---
06/05/2017 M-MODE ECHOCARDIOGRAM: Mitral valve, anterior leaflet of mitral valve shows normal excursion, EF velocity. Posterior leaflet of the mitral valve shows normal excursion. Left ventricular posterior wall shows increased thickness, normal excursion. Interventricular septum shows increased thickness, normal excursion, severe hypertrophy of the left ventricle. Left atrium normal. Aortic root shows normal dimension, normal excursion of aortic leaflets. CONCLUSION: Hypertrophy of the left ventricle, ejection fraction 55%. 2D ECHO: Long axis view showed normal sized left ventricle with hypertrophy of the left ventricle. Left atrium normal. Aortic root shows normal dimension, normal excursion of aortic leaflets. Short axis view of mitral valve normal. Short axis view of aortic valve normal. Apical four chamber view showed normal sized left ventricle with hypertrophy of the left ventricle. Left atrium normal. Right ventricular cavity, right atrium normal. No pericardial effusion. CONCLUSION: Severe hypertrophy of the left ventricle, ejection fraction 55%. Doppler study showed trace mitral regurgitation, trace triscuspid regurgitation. Right ventricular systolic pressure 19 mmHg, prominent A wave consistent with poor compliance of left ventricle. [facility]# [id number]
[2017-06-05] MEDS ORDERED: Probiotic Screen MC PRN (16:35)
--- NOTE | 2017-06-06 00:27 | Consultation ---
DATE OF CONSULTATION: 06/05/[address] Piedra. Thank you very much Dr. Piedra for this consultation. HISTORY OF PRESENT ILLNESS: This is a 51-year-old male with history of end-stage renal disease, on dialysis, who was getting dialyzed and went in to full cardiopulmonary arrest, was brought to the Emergency Room and resuscitation efforts were started. When he came to the Emergency Room, he had another arrest and he was resuscitated again and admitted to ICU for further treatment and management. The patient got intubated and ____ on the ventilator, we called to management of mechanical ventilation. The patient is intubated, not responsive. PAST MEDICAL HISTORY: Hypertension; end-stage renal disease, on dialysis; and diabetes mellitus. SOCIAL HISTORY: Not available. REVIEW OF SYSTEMS: Unable to obtain because of the patient's condition. PHYSICAL EXAMINATION: VITAL SIGNS: Temperature 99.8, pulse is 74, respiration is 20, and blood pressure 97/69, saturation 94%. HEENT: The patient is intubated, not responsive. Pupils are reactive to light and accommodation. Ears, nose, and throat normal. NECK: Supple. No JVD. CHEST: There are good breath sounds bilaterally, no wheezing or crackles. HEART: Regular. ABDOMEN: Soft. EXTREMITIES: No edema. LABORATORY DATA: WBCs 13.9, hemoglobin 10.6, hematocrit 30.9, and platelets 160,000. ABGs: pH 7.34, pCO2 of 44, pO2 of 72, bicarbonate 23, saturation 93%. Sodium 136, potassium 5.7, BUN is 62, creatinine 10.1. IMPRESSION: 1. Respiratory failure. 2. Status post cardiopulmonary arrest. 3. Anoxic encephalopathy. 4. Intracranial hemorrhage. 5. Diabetes mellitus, hypertension, and end-stage renal disease, on dialysis. PLAN: 1. Continue ventilator support. 2. Neurology. The patient will be possibly transferred to the facility for surgical evaluation, which might be limited at this point anyways. However, prognosis is very poor. Discussed with the family and will follow the patient with you. Thank you very much for this consultation. JOB# [id number]
--- NOTE | 2017-06-06 12:42 | Discharge Summary ---
DATE OF DISCHARGE: 06/05/2017 ADMITTING DIAGNOSES: 1. Cardiopulmonary arrest with asystole. 2. Sepsis shock. 3. Acute respiratory failure requiring intubation. 4. Leukocytosis. 5. Elevated troponin level, rule out acute coronary syndrome. 6. Elevated lactic acid level. 7. Hyponatremia. 8. Transaminitis. SECONDARY DIAGNOSES: Include: 1. History of endstage renal disease on hemodialysis. 2. History of type 2 diabetes. 3. History of essential hypertension. DISCHARGE DIAGNOSES: 1. Intraparanchymal hemorrhage 2. Cardiopulmonary arrest with asystole. 3. Sepsis shock. 4. Acute respiratory failure requiring intubation. 5. Leukocytosis. 6. Elevated troponin level, rule out acute coronary syndrome. 7. Elevated lactic acid level. 8. Hyponatremia. 9. Transaminitis. CONSULTANTS: Dr. Stokes, Critical care and Pulmonary. Dr. Irineo Agee, Cardiology. Dr. Juarez Nephrology. Dr. Allen, Surgery. Dr. Gonzales, Neurology. MAJOR PROCEDURES: He underwent a central line placement at the right subclavian vein under ultrasound guidance. There was arterial left upper extremity duplex ultrasound showing the patient's shunt was not well visualized. There was mild atherosclerotic vascular disease, suspected. There was a head CT done on 06/05/2017 showing 2.5 cm left temporal intraparenchymal hemorrhage with surrounding low density edema within the left temporal and left occipital lobe. There was also suggestion of additional cerebral edema throughout the right occipital lobe and probable additional generalized cerebral edema, mild hemorrhage seen layering along the falx and the tentorium. Abdominal pelvis CT also done on 06/05/2017 shows no evidence of small-bowel obstruction. There is diverticulosis without evidence of diverticulitis. NG tube within the stomach, but in the greater curvature wall of the stomach. There was a 2D echo done on 06/05/2017 showing severe hypertrophy of the left ventricle with an EF of 55%. Doppler study showed trace mitral regurgitation, trace tricuspid regurgitation. The right ventricle systolic pressure was noted to be 19, prominent A wave was noted consistent with poor compliance of left ventricle. BRIEF HOSPITAL COURSE: This 51-year-old gentleman with history of hypertension, diabetes, hyperlipidemia, end-stage renal disease who was receiving hemodialysis was noted to become unresponsive while getting the hemodialysis as noted above. Per 's account, the patient was doing pretty well in the days prior to this occurrence. He was transferred to the ER where pertinent findings included a white count of 18.7, sodium 130, potassium 6.8 and creatinine 9.5. He also had a lactic acid level of 2.18 as well as elevated transaminases and troponin level 0.18. CT of the brain was ordered and results were available a few hours later showing the above-mentioned findings. In the interim, the patient had been intubated, placed on IV pressors for hypotension and also was placed on broad spectrum antibiotics, pulmonary supportive care. Given extensive differential, he underwent a cardiology, neurological and a septic workup. Once CT results were noted, it was decided that the best course of care for this patient will to be transferred to higher level of care where he could be evaluated by Neurosurgery. DISCHARGE MEDICATIONS: Tylenol p.r.n. for fever or pain, amlodipine 10 every day, Coreg 6.25 b.i.d., Vasotec p.r.n., hydralazine p.r.n., lorazepam 1 mg q.4 p.r.n. for anxiety, morphine 1 mg q.4 p.r.n. for pain, Levophed drip keep sbp>90 , sevelamer 800 mg t.i.d., vancomycin per pharmacy, Zosyn per pharmacy. CONDITION ON DISCHARGE: Stable/guarded. DISPOSITION: The patient was transferred to [facility] for further management and care. JOB# [id number] ANGEL
--- NOTE | 2017-06-07 02:52 | Consultation ---
DATE OF CONSULTATION: 06/04/2017 PATIENT OF: Dr. Piedra. HISTORY AND PHYSICAL: This is a 51-year-old morbidly obese male patient who was at dialysis center at which time, the patient did not feel good. At that time dialysis was stopped. Following this the patient became snoring, hypotension, feeble pulse, cardiac arrest. The patient was intubated at the Emergency Room and admitted. The patient at the present time is hypotensive on Levophed. The patient had a CT scan which showed 2.5 cm left temporal hemorrhage. PAST MEDICAL HISTORY: The patient has a history of diabetes mellitus type 2, diabetic CKD stage 5, end-stage renal disease on dialysis, hypertension, hyperlipidemia, iron deficiency anemia. FAMILY HISTORY: Unremarkable. SOCIAL HISTORY: No history of smoking or alcohol abuse. ALLERGIES: None. PHYSICAL EXAMINATION: VITAL SIGNS: Blood pressure 90 systolic, on Levophed, pulse 100, respirations on ventilator. HEAD: Normocephalic. No lumps or bumps. EYES: Pupils equal, reactive to light. Fundi show AV nicking, sclerae white, conjunctivae pink. NECK: Carotid 2+. Normal upstroke. JVD 10 cm above the sternal angle. Thyroid not palpable. NODES: Lymph nodes not palpable. CHEST: Shows increased AP diameter. No kyphosis, scoliosis. LUNGS: Bilateral bronchovesicular breath sounds. Occasional wheeze. No rales. HEART: PMI fifth intercostal space with lateral to midclavicular line. S1, S2, soft S3, S4. ABDOMEN: Soft. Liver and spleen not palpable. No organomegaly. Bowel sounds active. NEUROLOGIC: The patient has acute CVA with left temporal hemorrhage 2.5 cm. CLINICAL IMPRESSION: 1. Cardiopulmonary arrest, acute respiratory failure, on ventilator. 2. Acute cerebrovascular accident with left temporal hemorrhage. 3. Hypotension on Levophed. 4. Hyperkalemia. 5. Diabetes mellitus type 2. 6. Chronic kidney disease stage 5. 7. End-stage renal disease, on dialysis. 8. Iron deficiency anemia. PLAN: The patient to continue present care. The patient might need tertiary care in view of acute hemorrhagic cerebrovascular accident. Continue the patient on Levophed and get echocardiogram. [facility]# [id number]
--- NOTE | 2017-06-10 23:17 | Admit Criteria Form ---
Admit Criteria Forms - Admit Criteria Diagnosis: CARDIOLOGY GRG Clinical Indications for Admission to Inpatient Care ([place]/check or initial the applicable condition/criteria) Hospital admission is needed for appropriate care of the patient because of ANY ONE of the following: [ ] I. Hemodynamic instability as indicated by ALL of the following (1)(2)(3) (4)(5)(6)(7)(8)(9)(10) [ ]a) Vital sign abnormality not readily corrected by appropriate treatment with 12-24 hours for ANY ONE: [ ]i) Hypotension that persists despite appropriate treatment (eg, volume repletion) [ ]ii) Tachycardiathat persists despite appropriate tx ( e.g., analgesia, fluids, sedation as indicated [ ]iii) Orthostatic vital sign changes that persists despite appropriate treatment (eg, volume repletion) [ ]b) Vital sign abnormailty that is severe indicated by ANY ONE of the following: [ ]i) Inadequate perfusion indicated by ANY ONE of the following: [ ] 1) Lactic acidosis (> 2 mmol/L) [ ] 2) New abnormal capillary refill (> 3 seconds) [ ] 3) Reduced urine output [ ] 4) New altered mental status [ ] 5) Myocardial Ischemia [ ] 6) Other metabolic acidosis (arterial pH <7.35 ) not otherwise explained. [ ]ii) Mean arterial pressure[A] less than 60 mm Hg [ ]iii) Mean arterial pressure[A] less than 70 mm Hg after 30 minutes of appropriate treatment (eg, fluid resuscitation) [ ]iv) Sustained heart rate greater than 120 beats per minute in adult or child 6 years or older[B] [ ]v) IV inotropic or vasopressor medication required to maintain adequate blood pressure or perfusion [ ] II. Severe heart failure as indicated by ANY ONE of the following(17)(18) [ ]a) Respiratory distress [ ]b) Hypotension [ ]c) Debilitating anasarca refractory to therapy (eg, tissue breakdown with infection)[C](19) [ ]d) Cardiac arrhythmias of immediate concern [ ]e) Myocardial ischemia [X ] III. Cardiac arrhythmias or findings of immediate concern indicated by ANY ONE of the following (21)(22): [ X] a) Heart rhythms that are inherently dangerous or unstable indicated by ANY ONE of the following (23)(24)(25): [X ] i) Resuscitated ventricular fibrillation or cardiac arrest [ ] ii) Ventricular escape rhythm [ ] iii) Sustained ventricular tachycardia (30 seconds or more of ventricular rhythm at greater than 100 beats per minute) [ ] iv) Nonsustained ventricular tachycardia and ANY ONE of the following: [ ] 1) Suspected cardiac ischemia as cause or consequence of ventricular tachycardia [ ] 2) Acute myocarditis [ ] b) Unstable cardiac conduction defects indicated by ANY ONE of the following(25)(26)(27) [ ] i) Type II second-degree atrioventricular block [ ]ii) Third-degree atrioventricular block [ ]iii) New-onset left bundle branch block with suspected myocardial ischemia [ ]c) Any heart rhythm and ANY ONE of the following (23)(24)(28)(29) (30) [ ] i) Continuous long-term ECG monitoring needed (e.g., initiation of drug requiring monitoring for more than 24 hours) [ ] ii) Patient has automatic implanted cardioverter defibrillator that is repeatedly firing, malfunctioning, or in need of immediate adjustment of settings beyond the scope of ambulatory or observation care [ ]d) Heart rhythms of concern due to ANY ONE of the following: [ ] i) Hypotension [ ] ii) Respiratory distress [ ] iii) Association with other significant symptoms (e.g., bradycardia with syncope or ongoing dizziness, supraventricular tachycardia with chest pain (28)(29)(31) [ ] IV. Monitoring for cardiac contusion beyond the scope of observation care needed [A](32)(33)(34) [ ] V. Surgical or device complication (e.g., valve replacement complication , ICD disfunction or pacemaker dysfunction) (49)(50)(51)(52)(53)(54) [ ] . Inpatient palliative care needed. [F](51)(52) Also use Inpatient Palliative Care Criteria [ ] VII. Nonbacterial thrombotic (marantic) endocarditis(43)(44)(55)(56)(57) [ ] VIII. Cardiology condition, symptom, or finding for which emergency and observation care has failed or are not considered appropriate. [ ] IX. Acute valvular disease requiring inpatient as indicated by ANY ONE of the following (40)(41) [ ]a) Acute valvular regurgitation (42) [ ]b) Noninfectious valvulitis (43)(44) [ ]c) Obstructive valve thrombosis (45)(46) [ ]d) Paravalvular leak(47)(48) [ ]e) Other significant valvular disorder remaining after emergency or observation level of care (as appropriate) [ ]X. Pericardial disease requiring inpatient treatment as indicated by ANY ONE of the following (35)(36)(37)(38) [ ]a) Suspected tamponade [ ]b) Hemopericardium [ ]c) Other significant pericardial disorder remaining after emergency or observation level of care (as appropriate)(39) [ ] XI. Cardiac ischemia beyond scope of emergency and observation care. [ ] XII. Cyanotic heart disease requiring inpatient care as indicated by 1 or more of the following(58)(59)(60): [ ]a) Acute onset of hypoxemia [ ]b) Exacerbation [ ] XIII. Hypertension requiring inpatient treatment as indicated by ANYONE of the following(11)(12)(13)(14): [ ]a) Severe hypertension (SBP greater than 180 mm Hg or DBP greater than 110 mm Hg, or greater than the 95th percentile for age, gender, and height in pediatric patients) that cannot be controlled (eg, to SBP less than 160 mm Hg and DBP less than 100 mm Hg) by emergency department or observation care treatment(15) [ ]b) Acute end organ damage secondary to hypertension (SBP greater than 140 mm Hg or DBP greater than 90 mm Hg) as indicated by ANYONE of the following: [ ] i) Hypertensive encephalopathy (eg, Altered mental status)(16) [ ] ii) Cerebral infarction [ ] iii) Intracranial hemorrhage [ ] iv) Myocardial ischemia or infarction [ ] v) Heart failure (eg, pulmonary edema) [ ] vi) Aortic dissection [ ] vii) Increased creatinine (new) with reduction of more than 50% in estimated glomerular filtration rate from baseline [ ] viii) Papilledema [ ] ix) Retinal hemorrhage [ ] x) Microangiopathic hemolytic anemia [ ] xi) Seizure [ ] xii) Other significant finding secondary to hypertension [ ] XIV. Complications of transplanted heart indicated by ANY ONE of the following(61): [ ]a) Acute graft rejection requiring inpatient management (eg, intravenous imunosuppression)(62)(63) [ ]b) Acute graft heart failure indicated by ANY ONE of the following(64): [ ] i) Hemodynamic instability [ ] ii) Cardiac arrhythmias of immediate concern [ ] iii) Pulmonary edema that is very severe (eg, mechanical ventilation needed, imminent or likely, need for 100% oxygen to keep oxygen saturation above 90%) [ ] iv) Pulmonary edema that is persistent as indicated by ALL of the following: [ ] 1) New need for oxygen therapy to keep oxygen saturation above 90 % (or increased FiO2 need from baseline) [ ] 2) Has not improved sufficiently with emergency department or observation care IV diuretics or other heart failure treatments[E]. [ ] iv) Altered mental status that is severe or persistent [ ] iv) Increased creatinine (new on laboratory test) with reduction of more than 50% in estimated glomerular filtration rate from baseline [ ] iv) Progressively (ongoing) rising creatinine (known from past laboratory test) with reduction of more than 25% in estimated glomerular filtration rate from baseline [ ] iv) Acute renal failure [ ] iv) Acute peripheral ischemia (eg, examination shows pulseless, cool, mottled, or cyanotic extremity) [ ] iv) Pulmonary artery catheter monitoring needed [ ] iv) Other sign or symptom of heart failure requiring inpatient treatment (ie, too severe or not responsive to outpatient and observation care treatment) [ ]c) Infection requiring inpatient management (eg, Hemodynamic instability, need for intravenous antimicrobial treatment)(66)(67)(68)(69)(70) [ ]d) Cardiac allograft vasculopathy requiring inpatient management (eg evidence of cardiacischemia)(71) [ ]e) Other complication of transplanted heart (eg, stroke, severe pulmonary hypertension, severe valvular dysfunction) requiring inpatient management(72) The original [employer] content created by [employer] has been revised. The portions of the content which have been revised are identified through the use of italic text or in bold, and [facility] has neither reviewed nor approved the modified material. All other unmodified content is copyright [employer]. Please see references footnoted in the original [employer] edition 2017 Admit Criteria Met?: Yes
== END 2017-06-05 19:35 | disposition short-term general hospital (02) | DRG 871 ==
LOC: ER 14:07 → ICU 18:03
PROVIDERS: ADMIT Internal Medicine; ATTEND Internal Medicine
PROC: 5A1945Z Respiratory Ventilation, 24-96 Consecutive Hours (ICD-10-PCS; principal; 2017-06-04)
PROC: 0BH17EZ Insertion of Endotracheal Airway into Trachea, Via Natural or Artificial Opening (ICD-10-PCS; 2017-06-04)
PROC: 02HV33Z Insertion of Infusion Device into Superior Vena Cava, Percutaneous Approach (ICD-10-PCS; 2017-06-04)
PROC: 5A12012 Performance of Cardiac Output, Single, Manual (ICD-10-PCS; 2017-06-04)
DX: A41.9 Sepsis, unspecified organism (principal); I46.9 Cardiac arrest, cause unspecified; J96.00 Acute respiratory failure, unspecified whether with hypoxia or hypercapnia; I62.9 Nontraumatic intracranial hemorrhage, unspecified; R65.21 Severe sepsis with septic shock; N18.6 End stage renal disease; I12.0 Hypertensive chronic kidney disease with stage 5 chronic kidney disease or end stage renal disease; I24.9 Acute ischemic heart disease, unspecified; L97.419 Non-pressure chronic ulcer of right heel and midfoot with unspecified severity; G93.1 Anoxic brain damage, not elsewhere classified; E87.1 Hypo-osmolality and hyponatremia; E11.22 Type 2 diabetes mellitus with diabetic chronic kidney disease; E78.5 Hyperlipidemia, unspecified; E11.40 Type 2 diabetes mellitus with diabetic neuropathy, unspecified; Z99.2 Dependence on renal dialysis
CPT/HCPCS: 36415-UA; 36600-90; 70450-TC; 71010-TC; 80053-TC; 80202-TC; 81001-TC; 82803-TC; 82948-90; 83036-90; 83605; 83735-TC; 83880-TC; 84484-TC; 85007-TC; 85027-TC; 85610-TC; 87070; 87086-90; 93005; 93931-LT-TC; 94002; 94003; J1644; J1815; J1956; J2543; J3370; J7030; J7040; X6452; X7704; Z7502; Z7610